=== PATIENT | male | born 1940 | race Caucasian/White ===

== ENCOUNTER 2018-12-12 10:35 | Observation (INO) ==
[2018-12-12] MEDS ORDERED: ASPIRIN PR ONE (10:47)
[2018-12-12] MEDS ORDERED: ASPIRIN PO ONE (10:47)
--- NOTE | 2018-12-12 11:29 | Diag Imaging Result Doc PS360 ---
EXAM: CHEST-2 VIEWS HISTORY: CP TECHNIQUE: Chest three views COMPARISON: 12/05/2018 FINDINGS: The lungs are hyperexpanded. The heart is not enlarged. The vessels are not distended. There are no infiltrates. No pleural effusions. IMPRESSION: Likely emphysema. Electronically signed by Sven Stewart 12/12/2018 11:26 AM
[2018-12-12 11:37] LABS: BASO# 0.02 X1000 (0.0-0.2); BASO% 0.3 % (0.0-0.8); EOS# 0.15 X1000 (0.0-0.7); EOS% 2.1 % (0.0-10.0); HEMATOCRIT 47.4 % (42.0-52.0); HEMOGLOBIN 15.5 g/dL (14.0-18.0); IMM GRAN# 0.02 X1000 (0.0-0.04); IMM GRAN% 0.3 % (0.0-0.5); LYMPH# 1.53 X1000 (1.2-3.4); LYMPH% 21.5 % (20.5-51.1); MCH 30.9 PG (27-31); MCHC 32.7 g/dL (33-37); MCV 94.4 FL (81-99); MONO# 0.86 X1000 (0.11-0.59); MONO% 12.1 % (1.7-9.3); MPV 9.9 FL (7.4-10.4); NEUT# 4.54 X1000 (1.4-6.5); NEUT% 63.7 % (42.2-75.2); PLT 245 X1000 (130-400); RBC 5.02 XMIL (4.7-6.1); RDW 13.7 % (11.5-14.5); WBC 7.12 X1000 (4.8-10.8)
[2018-12-12 11:45] LABS: INR 0.99; PROTIME 13.9 Seconds (11.0-16.0); PTT 28.8 Seconds (22.3-41.8)
--- NOTE | 2018-12-12 11:59 | EKG Report ---
Test Performed on : 12/12/2018 10:50:48 AM Test Reason : CP Blood Pressure : / mmHG Vent. Rate : 064 BPM Atrial Rate : 085 BPM P-R Int : 184 ms QRS Dur : 150 ms QT Int : 464 ms P-R-T Axes : 078 034 090 degrees QTc Int : 478 ms Sinus rhythm. with frequent premature ventricular complexes. and premature atrial complexes. Left bundle branch block Abnormal ECG No previous ECGs available Unconfirmed Result
[2018-12-12 12:09] LABS: AGAP 13; ALB/GLOB RATIO 1.1; ALBUMIN 3.9 g/dL (3.5-5.0); ALKALINE PHOSPHATASE 135 U/L (32-122); BUN 24 mg/dL (8-22); CALCIUM 8.3 mg/dL (8.8-10.2); CHLORIDE 101 mmol/L (98-107); CK PROFILE 17 U/L (24-204); COSMO 288; ESTIMATED GFR > 60; GLUCOSE 109 mg/dL (70-104); GOT 14 U/L (10-34); GPT 15 U/L (10-44); POTASSIUM 4.5 mmol/L (3.5-5.1); SODIUM 142 mmol/L (136-145); TCO2 28 mmol/L (25-35); TOTAL BILIRUBIN 0.37 mg/dL (0.20-1.00); TOTAL PROTEIN 7.4 g/dL (6.3-8.3)
--- NOTE | 2018-12-12 14:26 | PROVIDER DOCUMENTATION ---
This chart was entered by Iliana Gil Scribe, acting as scribe for Alex Celeste MD. HPI-Chest Pain - General Chief Complaint: Chest Pain Stated Complaint: CHEST PAIN Time Seen by Provider: 12/12/18 12:34 Source: patient, family - History of Present Illness-CP Nature of Presenting Problem: 78 yowm presents to the ed with c/o substernal chest pain but onset of pain started in rt anterior ribs and now radiating across chest and into back and shoulders. pt has seen his pcp and spray gunner and has been noted irregular EKG's. pt has echo and stress test scheduled tomorrow. pt on exam is nontoxic in appearance and is at bedside Location: reports: substernal Chest Pain Radiation: reports: shoulders, back Quality of Pain: reports: aching Severity in ED: moderate Onset/Duration: other (1 month) Timing: intermittent Context/Activities at Onset: reports: light activity Modifying Factors: worse with: movement, palpation Associated Symptoms: reports: back pain. denies: diaphoresis, dizziness, fever/chills, headache, nausea, shortness of breath, syncope, vomiting Nitro Today/Relief: no nitro taken today Aspirin Treatment Today: 325 mg x 1, provided by ED Prior Chest Pain/Cardiac Workup: reports: other (sees a cardiolist dr shobha burden) Review of Systems - Adult - REVIEW OF SYSTEMS - ADULT ROS:: ROS per family (per ) Constitutional: denies: chills, fever Eyes: reports: no symptoms reported Ears, Nose, Mouth & Throat: reports: no symptoms reported Cardiovascular: reports: see HPI, chest pain. denies: palpitations, syncope Respiratory: denies: shortness of breath, wheezing Gastrointestinal: reports: see HPI, frequent heartburn. denies: abdominal pain, diarrhea, nausea, vomiting Genitourinary: reports: no symptoms reported Musculoskeletal: reports: see HPI, back pain, joint pain (bilateral shoulder pain), other (rt sided rib pain) Integumentary: reports: no symptoms reported Neurological: denies: dizziness/vertigo, headache/migraines Psychiatric: reports: no symptoms reported Endocrine: reports: no symptoms reported Hematologic/Lymphatic: reports: no symptoms reported Allergic/Immunologic: reports: no symptoms reported All Other Systems: Reviewed and Negative Past History - Adult - PAST MEDICAL HISTORY-ADULT Review of Records: reports: Old Records Reviewed, Nursing Assessment Review, Medications Reviewed, Social history reviewed & non-contributory. Major Childhood Illnesses: reports: denies history Cardiovascular: reports: CAD, HTN, VA Respiratory: reports: denies history Gastrointestinal: reports: GERD Genitourinary: reports: denies history Musculoskeletal: reports: arthritis Neurological: reports: Parkinson's Psychiatric: reports: denies history Endocrine/Immune: reports: denies history Other Conditions: reports: cataract/glaucoma - PRIOR SURGERIES/PROCEDURES Surgical/Procedure History: reports: reviewed, not pertinent - IMMUNIZATION STATUS Childhood Immunizations: See Nurse Assessment Flu Vaccine: See Nurse Assessment - FAMILY HISTORY Family History: reviewed, not pertinent - SOCIAL HISTORY Smoking: denies Substance Use: denies Alcohol Use Frequency: never Living Situation: family Physical Exam-General - PHYSICAL EXAM-ADULT Initial Vital Signs Reviewed: Yes - CONSTITUTIONAL General Appearance: appears well, alert, no apparent distress, thin - EYES Eyes: PERRL/EOMI, pink conjunctivae - HEAD, EARS, NOSE, MOUTH & THROAT HENMT: normocephalic/atraumatic, moist mucous membranes, normal ENT inspection - NECK Neck: non-tender, full range of motion, supple, normal inspection - RESPIRATORY Respiratory: chest non-tender, lungs clear, normal breath sounds - CARDIOVASCULAR Cardiovascular: normal peripheral pulses, no edema, no gallop, no JVD, no murmur , bradycardia (54) - CHEST (BREASTS) Chest/Breast: tenderness (rt ribs) - GASTROINTESTINAL (ABDOMEN) Abdominal Exam: normal bowel sounds, non tender, soft - LYMPHATIC Lymphatic: no adenopathy - MUSCULOSKELETAL Back Exam: normal inspection, no CVA tenderness, no vertebral tenderness Extremity: normal range of motion, non-tender, normal gait, normal inspection - SKIN Integumentary: normal color, normal turgor, warm/dry - NEUROLOGIC Neurologic: grossly normal, no motor/sensory deficits - PSYCHIATRIC Psych/Mental Status: normal mood/affect, normal thought content, normal thought process, oriented x 3 - HEART Score HEART Score: History: Highly Suspicious HEART Score: ECG: Non-Specific Repolarization Disturbance/LBBB/PM HEART Score: Age: > or = 65 Years HEART Score: Risk Factors for Atherosclerotic Disease: > or = 3 Risk Factors or History of Atherosclerotic Disease HEART Score: Troponin: < or = Normal Limit Total HEART Score:: 7 Progress - PLAN OF CARE/RESULTS Progress/Plan/Lab Results: Vital Signs - 8 hr 12/12/18 10:44 12/12/18 12:06 Temperature 97.7 F 97.0 F L Pulse Rate 54 L 72 Respiratory Rate 18 18 Blood Pressure 174/71 160/65 O2 Sat by Pulse Oximetry 97 Laboratory Results - last 24 hr 12/12/18 12/12/18 12/12/18 11:00 11:00 11:00 WBC 7.12 RBC 5.02 Hgb 15.5 Hct 47.4 MCV 94.4 MCH 30.9 MCHC 32.7 L RDW Std Deviation 13.7 Plt Count 245 MPV 9.9 Immature Gran % (Auto) 0.3 Neut % (Auto) 63.7 Lymph % (Auto) 21.5 Terry % (Auto) 12.1 H Eos % (Auto) 2.1 Baso % (Auto) 0.3 Immature Gran # (Auto) 0.02 Neut # (Auto) 4.54 Lymph # (Auto) 1.53 Terry # (Auto) 0.86 H Eos # (Auto) 0.15 Baso # (Auto) 0.02 PT INR PTT (Actin FS) Sodium 142 Potassium 4.5 Chloride 101 Carbon Dioxide 28 Anion Gap 13 BUN 24 H Creatinine 1.0 Estimated GFR/1.73 m2 > 60 BUN/Creatinine Ratio 24 Glucose 109 H Calculated Osmolality 288 Calcium 8.3 L Total Bilirubin 0.37 AST 14 ALT 15 Alkaline Phosphatase 135 H Creatine Kinase 17 L Troponin T Kgi-V-Tdricakkwjl Pept 164 Total Protein 7.4 Albumin 3.9 Globulin 3.5 Albumin/Globulin Ratio 1.1 12/12/18 12/12/18 11:00 11:00 WBC RBC Hgb Hct MCV MCH MCHC RDW Std Deviation Plt Count MPV Immature Gran % (Auto) Neut % (Auto) Lymph % (Auto) Terry % (Auto) Eos % (Auto) Baso % (Auto) Immature Gran # (Auto) Neut # (Auto) Lymph # (Auto) Terry # (Auto) Eos # (Auto) Baso # (Auto) PT 13.9 INR 0.99 PTT (Actin FS) 28.8 Sodium Potassium Chloride Carbon Dioxide Anion Gap BUN Creatinine Estimated GFR/1.73 m2 BUN/Creatinine Ratio Glucose Calculated Osmolality Calcium Total Bilirubin AST ALT Alkaline Phosphatase Creatine Kinase Troponin T < 0.010 Edw-T-Yvhkoettkkt Pept Total Protein Albumin Globulin Albumin/Globulin Ratio Orders Category Date Time Status Cardiac Monitoring DIRECTED Care 12/12/18 10:48 Active Oxygen Therapy- ED Nursing DIRECTED Care 12/12/18 10:48 Active Saline Loc NOW Care 12/12/18 10:48 Active CHEST-2 VIEWS [RAD] Stat Exams 12/12/18 10:48 Completed CBC WITH ELECTRONIC DIFF [HEME] Stat Lab 12/12/18 11:00 Completed CK PROFILE [SP CHEM] Stat Lab 12/12/18 11:00 Completed COMPREHENSIVE METABOLIC PANEL [CHEM] Stat Lab 12/12/18 11:00 Completed PRO B-NATRIURETIC PEPTIDE Stat Lab 12/12/18 11:00 Completed PROTIME WITH INR [COAG] Stat Lab 12/12/18 11:00 Completed PTT [COAG] Stat Lab 12/12/18 11:00 Completed TROPONIN T Stat Lab 12/12/18 11:00 Completed Aspirin Med 12/12/18 10:47 Discontinued 300 mg VA NOW ONE Aspirin Med 12/12/18 10:47 Discontinued 325 mg PO NOW ONE CP/SOB/Palp >45 yrs of Age Stat Oth 12/12/18 10:47 Ordered EKG [EKG] Stat Ther 12/12/18 10:48 Draft Result Diagrams: 12/12/18 11:00 12/12/18 11:00 - REASSESSMENT Reassessment #1 Time Reassessed: 13:21 Status: unchanged Reassessment Comment: pt is calm and sitting in bed with at bedside Reassessment #2 Time Reassessed: 14:06 (dr at bedside pt is in no distress) Status: unchanged - EKG 1 Time of EKG reading by physician:: 10:50 EKG Read and Signed by:: Alex Celeste EKG Interpretation (*Must complete 3 of following elements*): Abnormal Rate: 64 Rhythm: sinus rhythm with frequent pvc and pac Barbeau: normal QRS: LBB VA Interval: normal ST Wave: normal - XRAY 1 XRAY: Bilateral XRAY Study: Chest Impression: See EMR Report (EXAM: CHEST-2 VIEWS HISTORY: CP TECHNIQUE: Chest three views COMPARISON: 12/05/2018 FINDINGS: The lungs are hyperexpanded. The heart is not enlarged. The vessels are not distended. There are no infiltrates. No pleural effusions. IMPRESSION: Likely emphysema. Electronically signed by Sven Hurst 12/12/2018 11:26 AM 12/12/18 1126 Interpreting Physician: Sven Stewart MD Dictated Date/Time: 12/12/18 1126 cc: Alex Celeste MD; Quincy Jacinto MD) - CONSULTS/PCP/HOSPITALIST Notification #1 *Consult/PCP/Hospitalist*: dr kiki burden spray gunner at [facility] Time Discussed: 13:34 Reason/Comments: phone consult #2 Consult: hospitalist dr stout Time Discussed: 14:19 (spoke with chaka) Consult Disposition: Admit Departure - Departure Date of Disposition Decision: 12/12/18 Time of Disposition Decision: 14:24 DIAGNOSIS: Chest pain, HTN (hypertension), CAD (coronary artery disease) Disposition: ADMITTED INPATIENT 09 Certified Medical Emergency: Emergent Condition: Fair Referrals and Follow-Ups: Quincy Jacinto MD [Primary Care Provider] - - Critical Care Note This patient required my direct & personal management of CC.: Yes Total Time (mins): 37 Critical Care Statement: This patient required my direct personal management to treat or rule out processes, the absence of which, could potentiallly result in sudden, clinically significant life or limb threatening deterioration. Attestation - Physician/ CASSANDRA Attestation Patient care was provided by Advanced Practice Provider:: No The physician spent face to face time with patient:: Yes Advanced Practice Provider documentation review:: Supervising physician onsite and consulted in the evaluation and care of this patient. The physician did have a face to face encounter with the patient. This chart was documented by the indicated scribe, (Iliana Gil Scribe) and accurately reflects the services I performed and decisions made by me, Alex Celeste MD, as attested by the provider's signature.
[2018-12-12] MEDS ORDERED: ZOFRAN IV PRN (15:18)
[2018-12-12] MEDS ORDERED: NS 1,000 ML IV ONE (15:18)
[2018-12-12] MEDS: MORPHINE IV PRN ×2 (16:40→22:37)
[2018-12-12] MEDS: LOVENOX SUBQ SCH (16:40)
[2018-12-12] MEDS ORDERED: MOTRIN PO ONE (17:11)
--- NOTE | 2018-12-12 18:29 | HISTORY AND PHYSICAL ---
ADDENDUM: An addendum to history and physical dictated by the nurse practitioner. I agree with most components of history, physical, assessment and plan. In brief, Mr. Haddad is a 78-year-old man with previous history of nonobstructive coronary artery disease, who comes in with atypical chest pain which is present on the right side of the chest, which has started involving the left side of the chest as well. It is getting worse with position, getting better with Advil. On admission, his EKG had potentially left bundle branch block with frequent premature ventricular contractions, with normal electrolytes. SUBJECTIVE: At the time of my encounter, the patient still complains of chest pain which is more now turned to back pain, which gets worse when he tries to sit up. The patient's family is at bedside. All of their questions have been answered. OBJECTIVE: Currently temperature is 97 degrees, pulse of 54 per minute, blood pressure 150/75, respiratory rate of 19, saturating 100% on room air. On physical examination he has irregularly irregular heart rhythm without murmur, rub or gallop. S1, S2 is normal. Air entry bilaterally equal without any wheeze, rhonchi or crackles. He does have significant tenderness over the back and right-sided chest over the ribs. His pain gets worse when he tries to sit up from lying down position. Abdomen is soft, nontender. No lower extremity edema. ASSESSMENT AND PLAN: 1. Atypical chest pain, likely related to costochondritis. I will give him onetime ibuprofen for now and give him p.r.n. morphine. Considering his previous history of nonobstructive coronary artery disease, age and risk factors of hyperlipidemia and essential hypertension, I will consult Cardiology for getting a stress test done. He might be a candidate for nuclear medicine Lexiscan. I will await final Cardiology recommendations. Plan of care was discussed with him. All of his questions have been answered. 2. For his acute costochondritis, continue pain management as mentioned above with ibuprofen and morphine. I will start him on scheduled doses of nonsteroidal anti-inflammatory drugs once stress test has been done. cc: Jonathan Gutierrez MD
--- NOTE | 2018-12-12 19:56 | HISTORY AND PHYSICAL ---
PRIMARY CARE PHYSICIAN: Dr. Quincy Jacinto. CHIEF COMPLAINT: Chest pain. HISTORY OF PRESENT ILLNESS: Mr. Haddad is a 78-year-old male with a history of nonobstructive coronary artery disease, hypertension and hyperlipidemia who presents with progressive chest pain over the past month. He describes a band like pain wrapping around his anterior chest from the right to the left, with pain going up the right side of his neck at various times during the day. The pain is not associated with exertion. In fact, he exercises quite often and has no pain with walking. He reports taking two Advil every time the pain comes on and this tends to relieve his pain. There is no associated shortness of breath, nausea, vomiting, or diaphoresis. He denies any lower extremity edema. He sees Dr. Coreas at [facility] in [facility] for nonobstructive coronary artery disease, and, in 2014, he had a CT of the coronaries which showed multiple nonobstructive lesions ranging from 30-60% occluded throughout his coronary system. At that time medical management was recommended. He saw Dr. Coreas last week for his recurring chest pain and was set up for a stress test and echocardiogram tomorrow, however, he started having the same type of pain today, which was not relieved with Advil and he went to his PCP's office who sent him directly to the ER for evaluation. In the ER, he did have an EKG done which showed sinus rhythm with multiple PACs and PVCs as well as a left bundle branch block. His cardiac enzymes are negative thus far and will admit him for observation status. PAST MEDICAL HISTORY: 1. Nonobstructive coronary artery disease. Coronary angiography CT scan done in 2014 showed mild disease in the LAD, first diagonal with 50% to 60% stenosis in the proximal segment, multiple areas of disease in the circumflex artery 50% to 60% and areas in the RCA with 30% to 50%. 2. Hypertension. 3. Hyperlipidemia. 4. Glaucoma. PAST SURGICAL HISTORY: Lipoma excision from the left flank. SOCIAL HISTORY: No tobacco, alcohol, or drug use. He is . His family is at the bedside. FAMILY HISTORY: Noncontributory. REVIEW OF SYSTEMS: A 14-point review of systems obtained and found to be negative with the exception of the HPI. ALLERGIES: Claritin D, penicillin, statins, and tramadol. PHYSICAL EXAMINATION: VITAL SIGNS: Blood pressure is 160/65. Heart rate is 72, respiratory rate 18, O2 saturation 96% on room air. Temperature is 97 degrees Fahrenheit. GENERAL: This is a thin, 78-year-old male lying in the hospital bed in no acute distress. NEUROLOGIC: He is awake, alert, and oriented. Follows commands without focal deficits. HEENT: Head is atraumatic and normocephalic. His pupils are equal, round, and reactive to light. Oral mucosa is moist. Trachea is midline. There is no JVD. CHEST: Diminished at the bases but clear to auscultation bilaterally. CARDIOVASCULAR: Slightly irregular. S1 and S2 is noted. No appreciable murmurs. There is some chest wall tenderness over the left flank. GI: Soft. Nondistended, nontender. Bowel sounds are positive. EXTREMITIES: No edema. Pulses 1+ bilaterally. DIAGNOSTIC DATA: Chest x-ray shows likely emphysema. EKG shows sinus rhythm with frequent PVCs and PACs. WBC 7.12, hemoglobin 15.5, hematocrit 47.4, platelet count 245. INR 0.99. Sodium 142, potassium 4.5, chloride 101. CO2 is 28, anion gap 13, BUN 24, creatinine 1, glucose 109, calcium 8.3, AST 14, ALT 15, alkaline phosphatase 135. CK 17. Protein 7.4. Albumin 3.9. ASSESSMENT/PLAN: 1. Atypical chest pain: He does have some chest wall tenderness and the fact that it is not associated with exertion and relieved with nonsteroids is encouraging. Symptoms are consistent with costochondritis, but he does have known coronary artery disease and is scheduled for echocardiogram and stress test tomorrow, so we will consult Cardiology. Order an echocardiogram and defer ischemic evaluation. Make sure he is on aspirin. He is allergic to statin. We will check a lipid panel in the morning and continue to trend his cardiac enzymes. 2. Hypertension: Continue home medications once reconciled. 3. Hyperlipidemia: Will check a lipid panel and try to find out what medicines he is on for his cholesterol. 4. Deep venous thrombosis prophylaxis with Lovenox. Further recommendations to follow. Dictated by JENIFFER Ramon for Jonathan Gutierrez MD cc: JENIFFER Ramon MD Vernon Ross Hunter Michael C. Donham, MD I agree with most components of history, physical, assessment and plan. A separate addendum has been dictated. [facility]
--- NOTE | 2018-12-12 21:01 | CARDIOLOGY CONSULTATION ---
DATE: 12/12/2018 REASON FOR CONSULTATION: This is a consultation requested by the hospitalist service, and the reason is chest pain. HISTORY: Mr. Haddad is a 78-year-old male. He says that for the past 5 weeks he has not been feeling well. He started having pain under the left lower quadrant, radiating to the right lower quadrant. He has been advised to pursue a colonoscopy in [place] with a colorectal surgeon; however, he started developing pain under the right armpit. It radiated to the front and right anterior chest. Eventually the pain started to move into the left anterior chest. It was intermittent. It seemed to get better by taking Advil. Eventually the pain started to migrate into the back. At some point he got pain that involved the entire back. It would get better from an intensity of 7/10 down to 2/10 or 3/10 by taking Advil. At night lying down, he noted that the pain would get better after turning to the left and the right side, and he would be able to sleep. Then waking up in the morning would bring the pain back on again. The patient has cut down on his regular exercise because of this pain. The patient denies having palpitations, syncope, dizziness, swelling or shortness of breath. He just feels tired. PAST MEDICAL HISTORY: Positive for moderate coronary atherosclerosis. He has undergone CT scan of the chest before that showed small-vessel disease. He has a history of hypertension and hyperlipidemia. He has premature beats. He follows with Dr. Igor Coreas in [place]. He has had some dizziness and equilibrium issues. He has had hearing loss. He has had glaucoma. PAST SURGICAL HISTORY: He has had skin cancers, detached retina and cataract surgery, cholecystectomy, pneumonia. MEDICATIONS: His home medications include ezetimibe 10 mg daily; hydrochlorothiazide 12.5 daily; lisinopril 10 mg daily; Protonix 40 mg daily; aspirin 81 daily; latanoprost; he takes Advil over- the-counter as needed for back and ribcage pain. ALLERGIES: He is intolerant to Pravachol, Zocor, Crestor, Lipitor, Livalo, penicillin, tramadol. REVIEW OF SYSTEMS: He has been very active up until the onset of these symptoms. Review of systems really noncontributory at this time other than what I have described. SOCIAL HISTORY: He has been for 48 years. He has 2 children. He quit smoking in 1994. He works for [employer] for many years. 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 FAMILY HISTORY: Noncontributory for heart disease. PHYSICAL EXAMINATION: Blood pressure is 153/75, temperature 98 degrees, pulse 83, respirations 19. He is awake, alert and oriented, in no distress. HEENT unremarkable. Chest clear to auscultation and percussion. Heart sounds are slightly irregular with PVCs. Abdomen is soft, nontender. No masses. No hepatomegaly. Extremities showed good pulses. No edema. Neurological exam is nonfocal. Moving all 4 extremities. LABORATORY DATA: Sodium 142, potassium 4.5, BUN 24, creatinine 1.0. CK 17. Troponin 0.010. ProBNP 164. Hemoglobin is 15.5, hematocrit 47.4. IMPRESSION: 1. Patient who presents with chest pain that is very atypical; however, the patient does have coronary artery disease historically. 2. Hypertension. 3. Hyperlipidemia. Unable to take statins. 4. Former smoker in the past. 5. History of diverticulosis. 6. Previous cholecystectomy. RECOMMENDATIONS: At this time we will obtain a myocardial perfusion stress test using Lexiscan protocol. We will do an echocardiogram. We will do a CT scan of the chest. We will check some markers of inflammation and also possibly a CEA to make sure that we are not missing something malignant. Further advice will be forthcoming. cc: Tevin Velez MD [facility]
[2018-12-13] MEDS: MORPHINE IV PRN ×2 (03:07→21:59)
[2018-12-13 06:03] LABS: HEMOGLOBIN 14.1 g/dL (14.0-18.0); MCH 31.3 PG (27-31); MCHC 32.8 g/dL (33-37); MCV 95.6 FL (81-99); MPV 10.4 FL (7.4-10.4); RBC 4.5 XMIL (4.7-6.1); RDW 13.8 % (11.5-14.5); WBC 5.55 X1000 (4.8-10.8)
[2018-12-13 06:13] LABS: HEMOGLOBIN A1C 5.8 % (4.8-6.0)
[2018-12-13 06:41] LABS: AGAP 7; BUN 19 mg/dL (8-22); C REACTIVE PROT QUANT 5.44 mg/L (0.00-5.00); CALCIUM 8.9 mg/dL (8.8-10.2); CHLORIDE 105 mmol/L (98-107); CHOLESTEROL 98 mg/dL (0-200); COSMO 283; CREATININE 0.9 mg/dL (0.7-1.2); ESTIMATED GFR > 60; GLUCOSE 87 mg/dL (70-104); HDL 31 mg/dL (35-55); LDL 28 mg/dL; MAGNESIUM 1.8 mg/dL (1.5-2.7); POTASSIUM 4.3 mmol/L (3.5-5.1); SODIUM 141 mmol/L (136-145); TCO2 29 mmol/L (25-35); TRIGLYCERIDES 195 mg/dL (39-160); VLDL 39 mg/dL
[2018-12-13 07:10] LABS: PREALBUMIN 17.5 mg/dL (20-40)
--- NOTE | 2018-12-13 07:36 | EKG Report ---
Test Performed on : 12/13/2018 06:43:55 AM Test Reason : cp Blood Pressure : / mmHG Vent. Rate : 068 BPM Atrial Rate : 068 BPM P-R Int : 174 ms QRS Dur : 146 ms QT Int : 478 ms P-R-T Axes : 063 049 092 degrees QTc Int : 508 ms Sinus rhythm. with premature supraventricular complexes. Left bundle branch block Abnormal ECG When compared with ECG of 12-DEC-2018 10:50, (Unconfirmed) premature ventricular complexes. are no longer present Unconfirmed Result
--- NOTE | 2018-12-13 08:07 | ECHO REPORT ---
ORDER DATE: 12/12/2018 SUMMARY: 1. Difficult study due to limited acoustic window quality. There were no parasternal views nor subcostal views. 2. Aortic valve not well imaged but probably he has very mild aortic valve sclerosis with adequate opening. Peak gradient across the valve is less than 10 mmHg. There is mild aortic regurgitation. Mitral, tricuspid valves are without gross structural abnormality. There is trace mitral regurgitation. Pulmonic valve not seen. The aortic root is grossly normal in size. 3. Normal left ventricular dimensions suggested. Estimated left ejection fraction appears to be at least 55%. No regional wall abnormalities evident. Doppler suggests grade 1 left ventricular diastolic dysfunction. Left atrium, right atrium, right ventricle are grossly normal size. 4. No pericardial effusion. 5. Inferior vena cava not well demonstrated. cc: MD Ricardo Bellamy CRNP
[2018-12-13] MEDS ORDERED: MOTRIN PO ONE (08:39)
[2018-12-13] MEDS ORDERED: ASPIRIN PO SCH (09:00)
[2018-12-13] MEDS ORDERED: MORPHINE IV ONE (09:00)
[2018-12-13] MEDS ORDERED: XALATAN 0.005% OPH SOLN SCH (09:00)
[2018-12-13] MEDS ORDERED: LEXISCAN ONE (09:01)
[2018-12-13] MEDS: ZETIA PO SCH (11:33)
[2018-12-13] MEDS: ASPIRIN PO SCH (11:33)
[2018-12-13] MEDS: PRINIVIL PO SCH (11:33)
[2018-12-13] MEDS: PROTONIX PO SCH (11:34)
--- NOTE | 2018-12-13 11:48 | Diag Imaging Result Doc PS360 ---
CT THORAX W/O CONTRAST - 12/13/2018 INDICATION: ABNORMAL CHEST X RAY COMPARISON: None FINDINGS: There is advanced COPD. No infiltrates or pulmonary masses. No adenopathy. There are a couple of well-defined fluid density cysts in the liver. There are cholecystectomy clips. Otherwise upper abdominal images are unremarkable. There are numerous well-defined lucent erosive lesions all throughout the spine and to a lesser extent the ribs. The sternum is also heavily affected. IMPRESSION: 1. Extensive lytic lesions throughout the bones compatible with multiple myeloma or atypical metastatic disease process. 2. Advanced COPD. This exam was performed using automated exposure control, adjustment of mA or kV according to patient size, and/or use of iterative reconstruction technique Electronically signed by Scott Post 12/13/2018 11:46 AM
--- NOTE | 2018-12-13 15:56 | Diag Imaging Result Document ---
PROCEDURE NAME: MYOCARDIAL PERF SCAN, STR/REST - 12/13/2018 INDICATION: This is a 78-year-old male with chest pain, previous diagnosis of coronary heart disease, abnormal EKG. DESCRIPTION OF PROCEDURE: The patient came into the nuclear lab and received a rest injection of technetium 99 sestamibi 11.8 mCi. Multiple views of the heart were obtained at rest. Subsequently the patient underwent infusion of Lexiscan 0.4 mg and at peak infusion was injected with technetium 99 sestamibi 33.8 mCi. Multiple tomographic views of the cardiac structures were obtained following completion of the exercise protocol. We used a 16-bin acquisition protocol. SUMMARY OF ELECTROCARDIOGRAPHIC PORTION OF THE STUDY: Resting ECG shows sinus rhythm with a left bundle branch block. There is a rightward axis. Resting blood pressure is 121/72. During the Lexiscan infusion, the heart rate increased to a maximum of 96 beats per minute. Blood pressure went up to 148/69. The patient reported no chest pain or dyspnea. The patient's ECG showed PVCs, occasional ventricular couplets. The patient reported no significant symptoms. Following the completion of the test, the heart rate and blood pressure returned back to baseline. CONCLUSIONS: In summary, electrocardiographic response to infusion of Lexiscan is deemed to be inconclusive due to the presence of left bundle branch block. SUMMARY OF MYOCARDIAL PERFUSION PORTION OF THE STUDY: Poststress tomographic views of the left ventricle showed a very mild basal inferior decreased uptake of radiotracer and also basal septal. The rest images showed that this defect is fixed. Polar plots revealed the same. There is a mild fixed basal inferior/septal defect. This probably represents attenuation artifact. The polar plots reveal basically the same. There is no evidence of inducible ischemia. There is good perfusion of the anterior wall, the apex, the lateral wall, most of the septum and most of the inferior wall. No ischemia is noted. The mild fixed defect is consistent with attenuation artifact. Gated SPECT on the poststress images showed ejection fraction of 70%. The rest images showed ejection fraction of 64%. There is questionable inferoseptal wall motion abnormality probably related to the presence of left bundle branch block. The lung/heart ratio is normal. TID is normal. COMMENTS: The review of the rotating/raw images suggests increased uptake of radiotracer at the level of the sternum. The reason for that is unclear. CONCLUSIONS: In summary, this study showed: 1. Inconclusive electrocardiographic response to infusion of Lexiscan. 2. Probably normal poststress myocardial perfusion scan. There is no scintigraphic evidence of pharmacologically induced myocardial ischemia. The mild basal inferior/basal septal defect probably correspond to attenuation artifact. No inducible ischemia is noted. 3. Excellent left ventricular systolic function. Ejection fraction is 70%. Clinical correlation is recommended. Suggest evaluation of thoracic cage for possible bone disease given the suspected increased uptake of radiotracer at the level of the sternal bone. cc: Tevin Velez MD [facility]
[2018-12-13] MEDS: LOVENOX SUBQ SCH (15:57)
[2018-12-13] MEDS: MOTRIN PO SCH (15:59)
--- NOTE | 2018-12-13 17:38 | PROGRESS NOTE ---
DATE: 12/13/2018 INTERVAL HISTORY: The patient underwent stress test. At that time, he was having some musculoskeletal back pain for which he received morphine and ibuprofen. CT scan was ordered to evaluate further on his chest pain, which had detected multiple osteolytic bony lesions affecting multiple levels of vertebral spine and roots as well. SUBJECTIVE: I went to bedside, evaluated the patient and discussed the CT scan finding with the patient and his daughter at bedside. I discussed about possibility of multiple myeloma, other hematologic malignancies or solid tumor with bony metastasis, and the fact that we are awaiting further tests and I would consult Oncology. PHYSICAL EXAMINATION: Vital Signs: Currently, vitals, temperature 97.6, pulse 71, respiratory 14, blood pressure 150/66, saturating 97% on room air. The patient denies any more chest pain, however, continues to complain of back pain to an extent that he would start tremoring because of the pain. General: Does not appear in acute distress. ENT: Oral cavity is moist. Lungs: Air entry bilaterally equal. No wheeze or rhonchi. No crackles. Cardiovascular: S1, S2 normal. Irregularly irregular. No murmur, rub, or gallop. Abdomen: Soft, nontender. No hepatosplenomegaly. Extremities: Does not have lower extremity edema. Neurologic: He is alert and oriented x3. Back: He has diffuse back tenderness over the spine. LABS: Suggestive of no leukocytosis, normal hemoglobin, hematocrit, platelet count. Normal electrolytes, elevated C-reactive protein, low pre-albumin. Lipid panel suggestive of LDL of 28. IMAGING: Chest CT had detected numerous well-defined lucent erosive lesions all throughout the spine and to a lesser extent on to the drapes. The sternum was also heavily affected with advanced COPD. ASSESSMENT AND PLAN: 1. Atypical chest pain. Echocardiogram had suggested ejection fraction of 50% with grade 1 diastolic dysfunction without regional wall motion abnormalities. His troponins have been negative. I will await nuclear medicine stress test results and further Cardiology recommendation. His chest pain has significantly improved. 2. Acute costochondritis. Continue patient on ibuprofen. It is possible that the patient's chest wall pain, as well as back pain are in the setting of osteolytic bony lesions. I will consider adding narcotic pain medication if it is not controlled on ibuprofen at the time of discharge. 3. Osteolytic bony lesions. I will follow up with serum protein electrophoresis, serum free light chain assay. I will also get left-sided femur x-ray to look for any plasmacytoma since the patient did have history of bony lesions on the left femur. The patient also mentions prior history of localized melanoma affecting back and pre-cancerous lesion of the skin of his scalp, which were resected. I will consult Hematology-Oncology if he would need further treatment considering his significant back pain and further diagnostic workup. DISPOSITION: The patient remains inside the hospital, following nuclear medicine stress test results for his cardiovascular disease, risk stratification and Hematology recommendation. If no further inpatient diagnostics are planned, my plan is to discharge him home tomorrow and then outpatient followup with Hematology-Oncology. Plan of care was discussed with the patient and his daughter at bedside, all of the questions have been answered. cc: Jonathan Gutierrez MD [facility]
--- NOTE | 2018-12-13 18:41 | Diag Imaging Result Doc PS360 ---
XRAY HIP UNILATERAL LT - 12/13/2018 INDICATION: Evaluate for plasmacytoma TECHNIQUE: Two views COMPARISON: None FINDINGS: Bones are intact and normally aligned. Joint spaces and soft tissues are clear. IMPRESSION: Negative exam. Electronically signed by Scott Post 12/13/2018 6:39 PM
--- NOTE | 2018-12-13 18:44 | Diag Imaging Result Doc PS360 ---
FEMUR MIN 2 VIEWS LEFT - 12/13/2018 INDICATION: Evaluate for plasmacytoma TECHNIQUE: Two views COMPARISON: None FINDINGS: Bones are intact and normally aligned. Joint spaces and soft tissues are clear. IMPRESSION: Negative exam. Electronically signed by Scott Post 12/13/2018 6:42 PM
--- NOTE | 2018-12-13 19:08 | CARDIOLOGY PROGRESS NOTE ---
DATE: 12/13/2018 CHIEF COMPLAINT: Chest pain. SUBJECTIVE: Mr. Haddad has not noticed any major change in his complaints. He is not dyspneic. OBJECTIVE: Vital Signs: Blood pressure 150/66, temperature 97.6, pulse 71, respirations 14. General: He is awake, alert and oriented, in no distress. HEENT: Unremarkable. Chest: Diminished breath sounds at bases without rales. Cardiovascular: Heart sounds are regular and rhythmic. No gallop or murmur. Abdomen: Nontender. No masses. No hepatomegaly. Extremities: Good pulses. No peripheral edema. Neurologic: Follows commands. Moves all 4 extremities. BLOOD WORK: Sodium 141, potassium 4.3, BUN 19, creatinine 0.9. Cholesterol is 98. Triglycerides are 95. Albumin is 17.5, HDL 31. PSA is normal. TSH is normal. ProBNP is normal. C-reactive protein minimally elevated. IMPRESSION: 1. Patient who presented with chest pain that sounded quite atypical for heart disease. At this time we have already completed a nuclear stress test, echocardiogram and a CT scan of the chest. The nuclear stress test shows no evidence of inducible ischemia. Echocardiogram is unremarkable. The review of the nuclear stress test showed increased uptake of radiotracer at the level of the sternum. The CT scan of the chest shows multiple lytic lesions in the bone, highly consistent with multiple myeloma. That probably explains this patient's symptoms. 2. Coincidental coronary heart disease which is not causing any active ischemia. 3. History of hyperlipidemia which is not an issue right now. 4. Mild degree of malnutrition. RECOMMENDATIONS: At this point in time from a cardiac viewpoint, no further recommendations are given. The patient is stable. Dr. Franks from the oncology service is being consulted. I will sign off, and please call us if further input is required from Cardiology. Cardiac arias, he is very stable. cc: Tevin Velez MD
[2018-12-13] MEDS: MELATONIN PO SCH (21:59)
[2018-12-14] MEDS: MORPHINE IV PRN ×3 (02:19→16:38)
[2018-12-14] MEDS: MELATONIN PO SCH (02:46)
[2018-12-14] MEDS: PROTONIX PO SCH (06:15)
[2018-12-14] MEDS: MOTRIN PO SCH (06:15)
[2018-12-14] MEDS: ZETIA PO SCH (09:13)
[2018-12-14] MEDS: ASPIRIN PO SCH (09:13)
[2018-12-14] MEDS: PRINIVIL PO SCH (09:13)
[2018-12-14 11:09] VITALS: BP 127/68
--- NOTE | 2018-12-14 19:34 | PROGRESS NOTE ---
DATE: 12/14/2018 INTERVAL HISTORY: No acute overnight events. SUBJECTIVE: The patient states he wants to go home. I explained to him that I am waiting for a hematology/oncology evaluation. Also explained to him that from my end, he is hemodynamically stable and there is nothing that I would do otherwise while keeping him in the hospital; however, I just wanted a hematology/oncology evaluation so that he can establish care and follow up with him as an outpatient for his lytic spinal bone lesion. The patient's family is at bedside. All of the questions have been satisfactorily answered. PHYSICAL EXAMINATION: Vitals: Temperature 98.3 degrees, pulse 74, respiratory rate 16, blood pressure 127/68, saturating 95% on room air. General: Does not appear in any acute distress. Oral cavity is moist. Lungs: Air entry bilaterally equal. No wheezing, rhonchi, crackles. Cardiovascular: S1, S2. No murmur, rub, or gallop. It is irregularly irregular. Extremities: No lower extremity edema. Neurologic: He is alert and oriented x3. Back: On spine examination, he does not have any tenderness. LABS: No new labs today. Microbiology: No microbiological data. IMAGING: Hip and femur x-ray yesterday of the left side did not detect any acute pathology. ASSESSMENT AND PLAN: 1. Atypical chest pain. EKG, troponins and echocardiogram were essentially unremarkable with ejection fraction of 50%. On nuclear medicine stress test he did not have a remarkable area of inducible ischemia. His atypical chest pain is slightly better. This is likely in the setting of multiple lytic bone lesions. 2. Rib cage pain and back pain in the setting of multiple bony lytic lesions as evidenced on CT scan. Start patient on ibuprofen and [place]. We will give him omeprazole to avoid gastritis and MiraLAX at the time of discharge as well. The differential diagnosis of multiple lytic bone lesions includes multiple myeloma, other monoclonal gammopathies or metastatic cancer. I have already ordered a serum protein electrophoresis, beta 2 microglobulin level, and serum free light chain assay. The labs are still pending. His femur and left hip x-ray did not detect any plasmacytoma, which I had ordered as the patient had mentioned to me about a prior history of left femur bone lesion. The patient also had a prior history of localized melanoma affecting the back and a precancerous lesion of the skin of the scalp which were totally removed. 3. The plan is to have a hematology/ oncology evaluation to establish care and make sure there is no other inpatient workup warranted. At that point I will consider discharging him, hopefully later today, and he should follow up with Hematology/Oncology as an outpatient. 4. Disposition and plan of care were discussed with him. All of his questions were answered. cc: Jonathan Gutierrez MD
--- NOTE | 2018-12-15 08:36 | DISCHARGE SUMMARY ---
ADMISSION DATE: 12/12/2018 DISCHARGE DATE: 12/14/2018 DISCHARGE DIAGNOSES: 1. Atypical chest pain. 2. Grade 1 diastolic dysfunction on echocardiogram. 3. Acute costochondritis. 4. Multiple osteolytic bony lesions. OTHER DIAGNOSES: 1. History of nonobstructive coronary artery disease. 2. Essential hypertension. 3. Hyperlipidemia. 4. Glaucoma. DISCHARGE MEDICATIONS: Aspirin 81 mg daily, lisinopril 10 mg daily, hydrochlorothiazide 12.5 mg daily, latanoprost 0.005% ophthalmic solution 2.5 mL, ezetimibe 10 mg daily, MiraLAX 17 g daily, ibuprofen 400 mg q.12 hours, hydrocodone acetaminophen 7.5/325 mg 1 tablet p.o. q.6 hours, 30 tablets have been prescribed, Pantoprazole 40 mg daily. DISCHARGE EXAMINATION: Vitals: At the time of discharge, temperature 98.3 degrees, pulse 74, respiratory rate 16, blood pressure 127/68, saturating 95% on room air. General: He does not appear in any acute distress. Throat: Oral cavity is moist. Lungs: Air entry bilaterally equal. No wheeze, rhonchi or crackles. Cardiovascular: S1, S2 normal. Regular with frequent premature ventricular complexes and premature atrial complexes. Abdomen: Soft, nontender, no lower extremity edema. Neurologic: Alert and oriented x3. LABORATORIES DURING HOSPITAL ADMISSION: No leukocytosis. Hemoglobin of 4.1. ESR was 52. He did not have electrolyte abnormalities. His creatinine was 0.9. His troponins were unremarkable. His C-reactive protein was 5.44. His cholesterol suggests LDL of 28. MICROBIOLOGY DURING HOSPITALIZATION: None. IMAGING: Chest x-ray on admission had detected emphysema without any acute pathology. Echocardiogram had detected ejection fraction of 55% with grade 1 diastolic dysfunction of left ventricle. Myocardial perfusion scan with nuclear medicine was inconclusive electrocardiographic response to infusion of Lexiscan, but probably normal post-stress myocardial perfusion scan with ejection fraction of 70%. The mild basal inferior basal septal defect probably corresponds to attenuation artifact. No inducible ischemia as per the cardiology report. Chest CT had detected extensive lytic bone lesions throughout the bones and rips consistent with multiple myeloma or atypical metastatic bone disease process. Femur x-ray and hip x-ray of the left did not detect any acute bony pathology. HOSPITAL COURSE SUMMARY: Mr. Haddad is a 38-year-old man who came in with chief complaint of chest pain which was reported to be present as bandlike pain wrapping around his anterior chest from right to left, with pain going up right side of his neck at various times during the day. The pain was not exertional, did not have an association with food. It has started restricting his activities. It started improving after Advil, but it would recur to an extent that he had trouble changing his position while sleeping and getting up from sleeping to sitting position. While in the emergency room, his EKG did have frequent premature ventricular contractions, premature atrial contraction. However, the troponins were negative. Echocardiogram was essentially unremarkable. Considering his prior history of nonobstructive coronary artery disease, his age, prior smoking history, essential hypertension and hyperlipidemia. Nuclear medicine stress test was performed for risk stratification, which likely was unremarkable except a small area, which was thought to be an attenuation defect. To further evaluate his chest pain, CT scan was ordered. CT scan had detected incidental finding of multiple lytic bone lesions affecting entire spine as well as rips, which was thought to be contributing to his chest pain and back pain. Essentially, he did not anemia or hypercalcemia or kidney dysfunction. This could be in the setting of multiple myeloma, metastatic bone lesion or other monoclonal gammopathy, and protein electrophoresis, free light chain assay and beta microglobulin were in laboratory. Hematology-Oncology was consulted. DISCHARGE INSTRUCTIONS: The patient was advised to follow up with Hematology/Oncology as an outpatient for further evaluation of these lytic bone lesions and cancer workup. All of his questions have been answered to the patient and his daughter at bedside. TIME SPENT ON DISCHARGE: More than 30 minutes spent in discharging the patient. cc: Jonathan Gutierrez MD
== END 2018-12-14 16:49 | disposition home or self-care (01) ==
LOC: ED 10:35 → 4N 10:35
PROVIDERS: ATTEND Internal Medicine
CPT/HCPCS: 71020; 71046; 71250; 73502; 73552; 78452; 80048; 80053; 80061; 82232; 82378; 82550; 83036; 83735; 83880; 83883; 84134; 84153; 84155; 84165; 84443; 84484; 85025; 85027; 85610; 85651; 85730; 86140; 93005; 93017; 93306; 96372; 96374; 96376; 99285; 99291; A9270; A9500; G0103; G0378; J1650; J2270; J2785; J7030; XXXXX